=== PATIENT | female | born 1980 | race Caucasian/White ===

== ENCOUNTER → 2017-07-19 | Outpatient (CLI) | payer OTHER ==
[~2017-07-19] MED LIST: 'PARAFON FORTE500 M1 PO; ANAPROX DS550 MG PO; BACTRIM DS 8001 TA1 PO; CIPROFLOXACIN500 MG PO; CLINDAMYCIN HC300 MG PO; CORTISPORIN 1%-10 M1 OT; FUROSEMIDE20 MG PO; MACROBID100 M1 PO; MOTRIN800 MG PO; NAPROSYN500 MG PO; NORCO 5-325 TA1 EACH PO; PREDNISONE20 M1 PO; TESSALON PERLE100 M1 PO; VALACYCLOVIR HYD1 GM PO; ZITHROMAX250 MG PO; ZOFRAN ODT4 MG SL; Zofran4 MG PO
[2017-07-19 09:23] LABS: HEMATOCRIT 42.8 % (37.0-47.0); MEAN CELL VOLUME 93.4 fl (81.0-99.0); MEAN CORPUSCULAR HGB 30.6 pg (27.0-31.0); MEAN CORPUSCULAR HGB CONC 32.7 g/dl (33.0-37.0); MEAN PLATELET VOLUME 11.1 fl (9.6-12.3); RED BLOOD COUNT 4.58 10*6/uL (4.10-5.10); RED CELL DISTRI WIDTH 13.2 % (0-14.5); WHITE BLOOD COUNT 5.1 10*3/uL (4.8-10.8)
[2017-07-19 09:48] LABS: ALBUMIN 3.7 gm/dl (3.1-4.5); ALKALINE PHOSPHATASE 82 U/L (45-117); BUN 8 mg/dl (7-24); CHLORIDE 103 mmol/L (98-107); CREATININE 0.62 mg/dL (0.55-1.02); POTASSIUM 3.7 mmol/L (3.5-5.1); SGOT/AST 9 IU/L (3-35); SGPT/ALT 20 U/L (12-78); SODIUM 138 mmol/L (136-145); TOTAL PROTEIN 7.9 gm/dL (6.4-8.2)
[2017-07-20 08:16] LABS: RHEUMATOID ARTHRITIS FACTOR 10.6 IU/mL (0.0-13.9)
== END | disposition home or self-care (01) ==
LOC: LAB 08:37
PROVIDERS: Family Medicine
DX: M54.5 Low back pain (principal); E55.9 Vitamin D deficiency, unspecified; M79.1 Myalgia; R53.83 Other fatigue; M25.50 Pain in unspecified joint

== ENCOUNTER → 2017-08-03 | Outpatient (CLI) | payer OTHER ==
[2017-08-04 15:07] LABS: EPSTEIN-BARR VCA IGM AB <36.0 U/mL (0.0-35.9)
== END | disposition home or self-care (01) ==
LOC: LAB 08:30
PROVIDERS: Family Medicine
DX: B27.90 Infectious mononucleosis, unspecified without complication (principal)

== ENCOUNTER → 2017-09-03 | Outpatient (CLI) | payer OTHER ==
[2017-09-03 12:29] LABS: ACT PARTIAL THROMBO TIME 23.6 SECONDS (20.8-31.5)
[2017-09-06 01:06] LABS: FACTOR VIII ACTIVITY 086264 110 % (57-163); VON WILLEBRAND ACTIVITY 120 % (50-200); VON WILLEBRAND FACTOR AG 191 % (50-200)
== END | disposition home or self-care (01) ==
LOC: LAB 11:27
PROVIDERS: Internal Medicine Hematology & Oncology
DX: R23.3 Spontaneous ecchymoses (principal)

== ENCOUNTER → 2017-09-05 | Outpatient (CLI) | payer OTHER | END | disposition home or self-care (01) | LOC: LAB 11:12 | DX: R23.3 Spontaneous ecchymoses (principal) ==

== ENCOUNTER → 2020-05-06 | Outpatient (CLI) | payer OTHER | END | disposition home or self-care (01) | LOC: RAD 10:31 | PROVIDERS: ATTEND Nurse Practitioner Family | DX: M25.511 Pain in right shoulder (principal); R29.898 Other symptoms and signs involving the musculoskeletal system ==

== ENCOUNTER 2025-07-24 10:56 | Emergency (ER) | payer OTHER ==
[~2025-07-24] VITALS: Ht 170.1 cm; Wt 103.9 kg
[2025-07-24 11:25] VITALS: BP 141/92
[2025-07-24] MEDS ORDERED: DERMABOND 1 EA APPL T ONE (12:09)
[2025-07-24] MEDS ORDERED: Tdap Vaccine 0.5 ML SYR (Adult Vaccine) IM ONE (12:15)
== END 2025-07-24 12:32 | disposition home or self-care (01) ==
LOC: ED 10:56
DX: S61.011A Laceration without foreign body of right thumb without damage to nail, initial encounter (principal); Z88.1 Allergy status to other antibiotic agents; Z88.6 Allergy status to analgesic agent; Z79.899 Other long term (current) drug therapy; Z98.890 Other specified postprocedural states; W26.8XXA Contact with other sharp object(s), not elsewhere classified, initial encounter; Y93.89 Activity, other specified; Y92.89 Other specified places as the place of occurrence of the external cause; Y99.0 Civilian activity done for income or pay